=== PATIENT | female | born 1975 | race Two or more races ===

== ENCOUNTER 2016-09-24 03:23 | Emergency (ER) | payer SELFPAY ==
[~2016-09-24] VITALS: Ht 162.6 cm; Wt 87.9 kg
[2016-09-24 03:25] VITALS: BP 150/93
== END 2016-09-24 04:37 ==
LOC: ED 04:31
DX: J20.8 Acute bronchitis due to other specified organisms (principal); J02.8 Acute pharyngitis due to other specified organisms; Z88.8 Allergy status to other drugs, medicaments and biological substances
CPT/HCPCS: 71020; 87081; 87880

== ENCOUNTER 2017-02-07 03:16 | Emergency (ER) | payer SELFPAY ==
[~2017-02-07] VITALS: Ht 160 cm; Wt 81.9 kg
[2017-02-07 03:58] LABS: HCG UR LOT HCG7030192
[2017-02-07 03:59] LABS: HEMATOCRIT 33.1 % (34.6-47.8); HEMOGLOBIN 10.8 g/dL (11.7-16.4); WHITE BLOOD COUNT 6.9 x10^3/uL (3.4-10)
[2017-02-07 04:02] LABS: HCG UR OBC PASS
[2017-02-07 04:09] LABS: BLOOD UREA NITROGEN 14 mg/dL (7-18)
[2017-02-07 04:12] LABS: ASPARTATE AMINO TRANSFERASE 14 U/L (15-37)
[2017-02-07] MEDS ORDERED: metroNIDAZOLE 500 MG TABLET ONE (05:18)
[2017-02-07] MEDS ORDERED: ONDANSETRON ODT 4 MG ONE (05:18)
[2017-02-07 05:29] VITALS: BP 114/62
[2017-02-07] MEDS ORDERED: ONDANSETRON ODT 4 MG PO ONE (05:30)
[2017-02-07] MEDS ORDERED: metroNIDAZOLE 500 MG TABLET PO ONE (05:30)
== END 2017-02-07 05:40 | disposition home or self-care (01) ==
LOC: ED 04:41
DX: N30.90 Cystitis, unspecified without hematuria (principal); A59.01 Trichomonal vulvovaginitis; F17.200 Nicotine dependence, unspecified, uncomplicated; Z90.49 Acquired absence of other specified parts of digestive tract
CPT/HCPCS: 36415; 80053; 81001; 81025; 85025; 87077; 87086; 99284; Q0162; 87186